=== PATIENT | female | born 1955 | race Caucasian/White ===

== ENCOUNTER → 2018-11-06 | Outpatient (CLI) | payer OTHER | END | disposition home or self-care (01) | LOC: LAB 11:48 | DX: Z04.89 Encounter for examination and observation for other specified reasons (principal); K76.0 Fatty (change of) liver, not elsewhere classified ==

== ENCOUNTER 2021-06-04 13:26 | Emergency (ER) | payer SELFPAY ==
[~2021-06-04] VITALS: Wt 99.8 kg
[2021-06-04] MEDS ORDERED: CEPHALEXIN500 M1 PO (14:07)
== END 2021-06-04 14:14 | disposition home or self-care (01) ==
LOC: ED 13:26
DX: T81.30XA Disruption of wound, unspecified, initial encounter (principal); Y92.89 Other specified places as the place of occurrence of the external cause